=== PATIENT | male | born 1960 | race Caucasian/White ===

== ENCOUNTER 2016-10-17 21:36 | Emergency (ER) | payer SELFPAY ==
[~2016-10-17] VITALS: Ht 180.3 cm; Wt 100.0 kg
[2016-10-17 22:05] VITALS: BP 138/91
[2016-10-17] MEDS ORDERED: CLINDAMYCIN HCL 150 MG CAPSULE PO ONE (22:15)
== END 2016-10-17 22:17 | disposition home or self-care (01) ==
LOC: EMS 21:38
DX: L03.116 Cellulitis of left lower limb (principal); F17.210 Nicotine dependence, cigarettes, uncomplicated; F15.10 Other stimulant abuse, uncomplicated; F12.10 Cannabis abuse, uncomplicated
CPT/HCPCS: 99282; 99283

== ENCOUNTER 2016-10-20 18:10 | Emergency (ER) | payer SELFPAY ==
[~2016-10-20] VITALS: Ht 177.8 cm; Wt 95.5 kg
[2016-10-20] MEDS ORDERED: clindamycin PO (18:24)
[2016-10-20] MEDS ORDERED: CLIN-77 PO (19:36)
[2016-10-20] MEDS: IBUPROFEN 800 MG TABLET PO ONE ×2 (19:39→19:48)
[2016-10-20] MEDS ORDERED: LIDOCAINE HCL/PF 1% 2 ML VIAL IM ONE (19:45)
[2016-10-20] MEDS ORDERED: CefTRIAXone SODIUM 1 GM/VIAL IM ONE (19:45)
[2016-10-20 20:00] VITALS: BP 140/92
== END 2016-10-20 20:22 | disposition home or self-care (01) ==
LOC: EMS 18:11
DX: L03.116 Cellulitis of left lower limb (principal); F12.90 Cannabis use, unspecified, uncomplicated; F15.90 Other stimulant use, unspecified, uncomplicated; F17.210 Nicotine dependence, cigarettes, uncomplicated
CPT/HCPCS: 96372; 99283; J0696; J3490

== ENCOUNTER 2017-02-15 02:25 | Emergency (ER) | payer SELFPAY ==
[~2017-02-15] VITALS: Ht 177.8 cm; Wt 100.0 kg
[~2017-02-15 02:25] MED LIST: CLIN150C9 PO
[2017-02-15] MEDS ORDERED: SULFAMETHOX/TRIMETH DS 800-160 MG/TABLET PO ONE (03:45)
[2017-02-15] MEDS ORDERED: CEPHALEXIN MONOHYDRATE 500 MG CAPSULE PO ONE (03:45)
[2017-02-15 03:58] LABS: BASOPHILS % (AUTO) 0.4 % (0.0-2.0); EOSINOPHILS % (AUTO) 6.2 % (1.0-6.0); HEMATOCRIT 39.4 % (41-53); HEMOGLOBIN 13.3 g/dL (13.5-17.5); LYMPHOCYTES # (AUTO) 1.7 K/uL (1.0-4.8); LYMPHOCYTES % (AUTO) 19.2 % (22.0-44.0); MEAN CORPUSCULAR HEMOGLOBIN 30.2 pg (26.0-34.0); MEAN CORPUSCULAR HGB CONC 33.8 G/dL (31.0-37.0); MEAN CORPUSCULAR VOLUME 89 fL (80-100); MONOCYTES # (AUTO) 1.1 K/uL (0.1-1.0); MONOCYTES % (AUTO) 12.1 % (2.0-9.0); NEUTROPHILS # (AUTO) 5.6 K/uL (1.8-7.7); NEUTROPHILS % (AUTO) 62.1 % (40.0-70.0); PLATELET COUNT (AUTO) 310 K/uL (150-450); RED BLOOD CELL COUNT(AUTO) 4.41 MIL/uL (4.50-5.90); RED CELL DISTRIBUTION WIDTH 14.2 % (11.5-14.5)
[2017-02-15 04:02] LABS: ANION GAP 7 mmol/L (8-16); CALCIUM, TOTAL 8.8 mg/dL (8.8-10.5); CARBON DIOXIDE 30 mmol/L (22-29); CHLORIDE 104 mmol/L (98-107); CREATININE 1.07 mg/dL (0.60-1.30); GLOMERULAR FILTR. RATE CALC > 60 mL/min (>60); POTASSIUM 3.9 mmol/L (3.5-5.1); SODIUM SERUM 141 mmol/L (136-145); UREA NITROGEN, BLOOD 15 mg/dL (7-18)
[2017-02-15 04:08] LABS: ALANINE AMINOTRANSFERASE 34 U/L (12-78); ALBUMIN 3.4 g/dL (3.4-5.0); ASPARTATE AMINOTRANSFERASE 23 U/L (15-37); BILIRUBIN,TOTAL 0.2 mg/dL (0.1-1.0); TOTAL PROTEIN, SERUM 7.8 g/dL (6.4-8.2)
[2017-02-15 05:12] VITALS: BP 143/90
== END 2017-02-15 06:01 | disposition home or self-care (01) ==
LOC: EMS 02:26
DX: L03.116 Cellulitis of left lower limb (principal); L03.115 Cellulitis of right lower limb; F17.210 Nicotine dependence, cigarettes, uncomplicated; F12.10 Cannabis abuse, uncomplicated; F15.10 Other stimulant abuse, uncomplicated
CPT/HCPCS: 99284

== ENCOUNTER 2017-03-03 15:57 | Emergency (ER) | payer SELFPAY ==
[~2017-03-03] VITALS: Ht 180.3 cm; Wt 95.5 kg
[2017-03-03 16:44] LABS: BASOPHILS # (AUTO) 0.02 K/uL (0.00-0.20); BASOPHILS % (AUTO) 0.2 % (0.0-2.0); EOSINOPHILS # (AUTO) 0.66 K/uL (0.00-0.70); EOSINOPHILS % (AUTO) 5.73 % (1.0-6.0); HEMATOCRIT 39.9 % (41-53); HEMOGLOBIN 13.3 g/dL (13.5-17.5); LYMPHOCYTES % (AUTO) 17.7 % (22.0-44.0); MEAN CORPUSCULAR HEMOGLOBIN 30.1 pg (26.0-34.0); MEAN CORPUSCULAR HGB CONC 33.2 G/dL (31.0-37.0); MEAN CORPUSCULAR VOLUME 91 fL (80-100); MONOCYTES # (AUTO) 1.1 K/uL (0.1-1.0); MONOCYTES % (AUTO) 9.5 % (2.0-9.0); NEUTROPHILS # (AUTO) 7.7 K/uL (1.8-7.7); NEUTROPHILS % (AUTO) 66.9 % (40.0-70.0); PLATELET COUNT (AUTO) 285 K/uL (150-450); RED CELL DISTRIBUTION WIDTH 14.1 % (11.5-14.5)
[2017-03-03 17:00] LABS: CALCIUM, TOTAL 8.8 mg/dL (8.8-10.5); CREATININE 1.49 mg/dL (0.60-1.30); POTASSIUM 4.1 mmol/L (3.5-5.1)
[2017-03-03 17:14] LABS: ALBUMIN 3.3 g/dL (3.4-5.0); BILIRUBIN,TOTAL 0.2 mg/dL (0.1-1.0); TOTAL PROTEIN, SERUM 7.7 g/dL (6.4-8.2)
[2017-03-03] MEDS ORDERED: DEXAMETHASONE SOD PHOS 4 MG/ML 5 ML VIAL IM ONE (19:30)
[2017-03-03 19:32] VITALS: BP 148/93
== END 2017-03-03 19:44 | disposition home or self-care (01) ==
LOC: EMS 15:58
DX: L30.8 Other specified dermatitis (principal); F17.210 Nicotine dependence, cigarettes, uncomplicated; F12.10 Cannabis abuse, uncomplicated; F15.10 Other stimulant abuse, uncomplicated
CPT/HCPCS: 36415; 80053; 83605; 85025; 87040; 93971; 96372; 99285; J1100